=== PATIENT | male | born 1960 | race Caucasian/White ===

== ENCOUNTER 2016-10-11 14:54 | Emergency (ER) | payer OTHER ==
[~2016-10-11] VITALS: Ht 188 cm; Wt 82.0 kg
[~2016-10-11 14:54] MED LIST: QUET100T PO
[2016-10-11 15:58] VITALS: Ht 188 cm; Wt 82.0 kg
[2016-10-11] MEDS ORDERED: HYDROCODONE/APAP (5/325) TAB PO ONE (17:30)
--- NOTE | 2016-10-11 18:01 | RADRPT ---
PROCEDURE: US DVT. CLINICAL INDICATION: Left lower extremity pain. TECHNIQUE: Multiple longitudinal and transverse images of the left lower extremity veins were obta ined with ramírez scale and color Doppler imaging. 2D grayscale measurements with compression, color D oppler flow, and augmentation was performed. The calf veins were interrogated as well. COMPARISON: No prior studies are available for comparison. FINDINGS: The left common femoral, superficial femoral and popliteal veins are normally compressible throughou t. Color flow demonstrates normal filling of the vessel. Normal waveforms are visualized and there is normal response to augmentation. IMPRESSION: 1. No evidence of a deep vein thrombosis involving the left lower extremity. RPTAT: AACC Physician Eddy Date Time Electronically viewed and signed by Physician Eddy on 10/11/2016 18:01 /
--- NOTE | 2016-10-11 18:48 | RADRPT ---
PROCEDURE: XR Left Foot. CLINICAL INDICATION: Generalized pain. TECHNIQUE: AP, lateral and oblique views of the left foot was obtained. The images were reviewed on a PACS workstation. COMPARISON: None. FINDINGS: There are degenerative changes involving the left first metatarsal phalangeal joint with associated joint space narrowing. The other bony elements and joint spaces are unremarkable. IMPRESSION: 1. 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 RPTAT:AAJJ Physician Devin Date Time Electronically viewed and signed by Jon Hackett Physician on 10/11/2016 18:48 BUTCH/
[2016-10-11] MEDS ORDERED: SULF1TAB31 PO (19:13)
[2016-10-11] MEDS ORDERED: BAC (19:13)
[2016-10-11] MEDS ORDERED: CEPH-443 PO (19:13)
[2016-10-11] MEDS ORDERED: NAPR-260 PO (19:14)
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
[2016-10-11 19:46] VITALS: BP 164/86; PULSE 81; RESP 18; TEMP 98.4
== END 2016-10-11 19:46 | disposition home or self-care (01) ==
LOC: FTE 14:54
DX: M79.672 Pain in left foot (principal); Z87.891 Personal history of nicotine dependence
CPT/HCPCS: 73630; 93971; Z7502; Z7610

== ENCOUNTER 2016-10-19 13:49 | Emergency (ER) | payer OTHER ==
[~2016-10-19] VITALS: Ht 188 cm; Wt 78.0 kg
[~2016-10-19 13:49] MED LIST changes: +CEPH-443 PO; +NAPR-260 PO; +SULF1TAB31 PO
[2016-10-19 13:54] VITALS: Ht 188 cm; Wt 78.0 kg
[2016-10-19] MEDS ORDERED: morphine 4 MG/ML VIAL IV STA (14:37)
[2016-10-19] MEDS ORDERED: ONDANSETRON 4 MG INJ IV STA (14:37)
[2016-10-19] MEDS ORDERED: VANCOMYCIN 1 GM (PMX) 250 ML IVPB STA (14:37)
[2016-10-19] MEDS ORDERED: LIDOCAINE 2% (MDV) 20 ML INJ INJ ONE (15:00)
[2016-10-19 15:11] LABS: ADD SCAN DIFF NO
[2016-10-19 15:15] LABS: BASOPHILS % 0.4 % (0.0-2.0); EOSINOPHILS # 0.1 10^3/ul (0.0-0.5); EOSINOPHILS % 1.5 % (0.0-7.0); HEMOGLOBIN 15.6 g/dl (14.0-18.0); LYMPHOCYTES # 1.4 10^3/ul (0.8-2.9); LYMPHOCYTES % 18.6 % (15.0-51.0); MEAN CORPUSCULAR HEMOGLOBIN 28.7 pg (29.0-33.0); MEAN CORPUSCULAR HGB CONC 32.5 g/dl (32.0-37.0); MEAN CORPUSCULAR VOLUME 88.4 fl (82.0-101.0); MEAN PLATELET VOLUME 10.4 fl (7.4-10.4); MONOCYTE # 0.7 10^3/ul (0.3-0.9); MONOCYTES % 9.8 % (0.0-11.0); NEUTROPHIL # 5.1 10^3/ul (1.6-7.5); NEUTROPHILS % 69.4 % (39.0-77.0); PLATELET COUNT 250 10^3/UL (140-415); RED BLOOD COUNT 5.43 10^6/ul (4.70-6.10); RED CELL DISTRIBUTION WIDTH 13.8 % (11.5-14.5); WHITE BLOOD COUNT 7.4 10^3/ul (4.8-10.8)
[2016-10-19 15:24] LABS: ADD UMIC NO; URINE BILIRUBIN (Dip) NEGATIVE (NEGATIVE); URINE BLOOD (Dip) NEGATIVE (NEGATIVE); URINE COLOR YELLOW (YELLOW); URINE GLUCOSE (Dip) NEGATIVE (NEGATIVE); URINE KETONES (Dip) TRACE (NEGATIVE); URINE LEUKOCYTE ESTERASE (Dip) NEGATIVE (NEGATIVE); URINE NITRITE (Dip) NEGATIVE (NEGATIVE); URINE TOTAL PROTEIN (Dip) NEGATIVE (NEGATIVE); URINE UROBILINOGEN (Dip) 1.0 E.U./dL (0.1-1.0)
[2016-10-19 15:28] LABS: INR 0.98
[2016-10-19 15:29] LABS: PARTIAL THROMBOPLASTIN TIME 25.8 Sec (25.0-35.0)
[2016-10-19 15:30] LABS: ALBUMIN 4.2 g/dl (3.3-4.9); CHLORIDE 105 mmol/L (97-110)
[2016-10-19] MEDS ORDERED: DIPHTH/TET/ACEL PERTUSS (ADULT) 0.5 ML VIAL IM* ONE (15:30)
[2016-10-19 15:31] LABS: POTASSIUM 4.7 mmol/L (3.5-5.1); SODIUM 143 mmol/L (135-144)
[2016-10-19 15:33] LABS: BILIRUBIN,INDIRECT 0.2 mg/dl (0-1.1); BILIRUBIN,TOTAL 0.2 mg/dl (0.2-1.3); CREATININE 0.82 mg/dl (0.61-1.24)
[2016-10-19 15:34] LABS: ALANINE AMINOTRANSFERASE 332 IU/L (13-69); ALBUMIN/GLOBULIN RATIO 1.05; ALKALINE PHOSPHATASE 63 IU/L (42-121); ANION GAP 15 (8-16); ASPARTATE AMINO TRANSFERASE 166 IU/L (15-46); BLOOD UREA NITROGEN 19 mg/dl (7-20); CARBON DIOXIDE 28 mmol/L (21-31); GLUCOSE 78 mg/dl (70-220); TOTAL PROTEIN 8.2 g/dl (6.1-8.1); URIC ACID 5.3 mg/dl (3.1-7.9)
[2016-10-19 15:35] LABS: CALCIUM 9.1 mg/dl (8.4-10.2)
[2016-10-19 15:37] LABS: C-REACTIVE PROTEIN < 0.5 mg/dl (0.0-0.9)
[2016-10-19] MEDS ORDERED: SULF1TAB31 PO (16:32)
[2016-10-19] MEDS ORDERED: CEPH-443 PO (16:32)
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
[2016-10-19] MEDS ORDERED: ACET325T33 PO (17:02)
[2016-10-19] MEDS ORDERED: IBUP-1542 PO (17:05)
[2016-10-19] MEDS ORDERED: HYDR-906 PO (17:19)
[2016-10-19 17:27] VITALS: BP 131/97; PULSE 84; RESP 18; TEMP 97.5
== END 2016-10-19 17:22 | disposition home or self-care (01) ==
LOC: FTE 13:49
DX: M79.672 Pain in left foot (principal); F17.210 Nicotine dependence, cigarettes, uncomplicated; L03.032 Cellulitis of left toe; Z23 Encounter for immunization
CPT/HCPCS: 10060; 80053; 81003; 83690; 84560; 85025; 85610; 85651; 85730; 86140; 90715; J2270; J2405; J3370; Z7610; 36415; 90471; 96374; 96375

== ENCOUNTER 2016-10-22 12:03 | Emergency (ER) | payer OTHER ==
[~2016-10-22] VITALS: Wt 78.5 kg
[~2016-10-22 12:03] MED LIST changes: +HYDR-906 PO; +IBUP-1542 PO
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
== END 2016-10-22 13:23 | disposition home or self-care (01) ==
LOC: FTE 12:03
DX: Z48.817 Encounter for surgical aftercare following surgery on the skin and subcutaneous tissue (principal)
CPT/HCPCS: 99281

== ENCOUNTER 2016-10-28 11:23 | Emergency (ER) | payer OTHER ==
[~2016-10-28] VITALS: Wt 82.0 kg
[~2016-10-28 11:23] MED LIST changes: +ACET325T33 PO
[2016-10-28] MEDS ORDERED: NAPR-260 PO (11:57)
[2016-10-28] MEDS ORDERED: HYDR-906 PO (11:57)
[2016-10-28] MEDS ORDERED: PRED20TA PO (11:57)
[2016-10-28] MEDS ORDERED: NEOM28OI TP (11:58)
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
== END 2016-10-28 12:13 | disposition home or self-care (01) ==
LOC: FTE 11:23
DX: M25.572 Pain in left ankle and joints of left foot (principal); F17.210 Nicotine dependence, cigarettes, uncomplicated
CPT/HCPCS: 99284

== ENCOUNTER 2016-12-02 19:51 | Emergency (ER) | payer OTHER ==
[~2016-12-02] VITALS: Ht 182.9 cm; Wt 81.0 kg
[~2016-12-02 19:51] MED LIST changes: -ACET325T33 PO; +NEOM28OI TP; +PRED20TA PO
[2016-12-02 19:54] VITALS: Ht 182.9 cm; Wt 81.0 kg
[2016-12-02] MEDS ORDERED: ACET325T33 PO (21:09)
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
== END 2016-12-02 20:10 | disposition home or self-care (01) ==
LOC: E/R 19:51
DX: M79.671 Pain in right foot (principal); M19.172 Post-traumatic osteoarthritis, left ankle and foot; Z87.891 Personal history of nicotine dependence
CPT/HCPCS: 99283